=== PATIENT | female | born 1955 | race African-American/Black ===

== ENCOUNTER 2016-07-20 18:50 | Observation (INO) | payer OTHER ==
[2016-07-20 18:56] VITALS: BMI 33.7
[2016-07-20] MEDS ORDERED: ALBUTEROL SO4 2.5/IPRATROPIUM 0.5 INH SOL 3 ML VIAL.NEB. NEB ONE (19:10)
[2016-07-20] MEDS ORDERED: ASPIRIN 81 MG CHEWABLE TABLETS PO ONE (19:12)
[2016-07-20] MEDS ORDERED: methylPREDNISolone NA SUCC 125 MG/2 ML VIAL IVPB ONE (19:13)
[2016-07-20] MEDS ORDERED: SODIUM CHLORIDE 500 ML IV STA (19:13)
--- NOTE | 2016-07-20 19:14 | PDOC ---
History of Present Illness - General Chief Complaint: Chest Pain Stated Complaint: SOB/CHEST TIGHGTNESS Time Seen by Provider: 07/20/16 18:58 History Source: Patient Exam Limitations: No Limitations - History of Present Illness Initial Comments: 07/20/16 19:28 60yo Female patient w/ PmHx: HTN, HLD, DM, GERD, Gastritis, presents to ED c/o chest pains which began prior to her arrival. Patient states symptoms began this evening when she was attempting to throw out her garage, she believe she came into contact with something she is allergic to. Patient began itching, coughing and took Benadryl x 2. After taking Benadryl, patient reports Chest Pains began. Associated Trouble breathing. Patient denies any other complaints at this time. PCP- Dr. Kang. Presenting Symptoms: Chest Pain, Short of Breath Timing/Duration: reports: constant Severity/Quality: reports: moderate Location: reports: central Chest Pain Radiation: reports: no radiation Activities at Onset: reports: no specific activity Prior Chest Pain/Cardiac Workup: reports: No prior chest pain, No prior cardiac workup, Non-cardiac Modifying Factors: worse with: antacids, breathing, coughing, defecating, eating , exercise, lying down, morphine, movement, nitroglycerin, oxygen, palpation, rest, other Nitro Today/Relief: Yes: no nitro taken today Aspirin Received prior to arrival (Core Measure): Yes: 81 mg x 4, provided by ED ASA Contraindications (Core Measure): No: Allergy, Other, Active Blding w/i 24 hrs., Plavix, Receiving Warfarin Beta Bharat given by EMS (Core Measure): No Beta Bharat taken at Home (Core Measure): No Past History - Travel Traveled outside of the country in the last 30 days: No Close contact w/someone who was outside of country & ill: No - Past Medical History Allergies/Adverse Reactions: Allergies Allergy/AdvReac Type Severity Reaction Status Date / Time Pork/Porcine Containing Allergy Intermediate Rash Verified 07/20/16 18:56 Products No Known Drug Allergies Allergy Verified 07/20/16 18:56 banana Allergy Intermediate Difficulty Uncoded 07/20/16 18:56 Breathing cherries Allergy Intermediate Rash Uncoded 07/20/16 18:56 nuts Allergy Intermediate Rash Uncoded 07/20/16 18:56 peas Allergy Intermediate Rash Uncoded 07/20/16 18:56 shellfish Allergy Intermediate Difficulty Uncoded 07/20/16 18:56 Breathing Home Medications: Ambulatory Orders Metformin HCl [Glucophage -] 500 mg PO HS 08/10/13 Amlodipine Besylate/Benazepril [Lotrel 5-20 mg Capsule] 1 each PO HS 08/19/13 Atorvastatin Ca [Lipitor] 20 mg PO HS 02/10/14 Ibuprofen 800 mg PO TID PRN 11/15/15 Anemia: Yes (CHRONIC) Asthma: No Cancer: No Cardiac Disorders: No CVA: No COPD: No CHF: No Dementia: No Diabetes: Yes (DX 2005-TYPE 2) GI Disorders: Yes (REFLUX) Disorders: No HTN: Yes (DX 2005) Hypercholesterolemia: Yes (DX 2005) Liver Disease: No Suicide Attempt (Hx): No Seizures: No Thyroid Disease: No - Surgical History Abdominal Surgery: No Appendectomy: No Cardiac Surgery: No Cholecystectomy: No Lung Surgery: No Neurologic Surgery: No Orthopedic Surgery: Yes (LEFT KNEE ARTHROSCOPY,RIGHT SHOULDER SURGERY) - Psycho/Social/Smoking Cessation Hx Anxiety: No Suicidal Ideation: No Smoking History: Never smoked Have you smoked in the past 12 months: No Hx Alcohol Use: No Drug/Substance Use Hx: No Substance Use Type: None Hx Substance Use Treatment: No Cardiac Specific PMH - Complaint Specific PMHX Abdominal Aortic Aneurysm: No Angina: No Cardiac Arrhythmia: No Cardiac Stent: No GERD: No Myocardial Infarction: No Pacemaker: No Pulmonary Embolus: No Valvular Heart Disease: No Peripheral Vascular Disease: No Review of Systems - Review of Systems Able to Perform ROS?: Yes Is the patient limited Romansh proficient: No Constitutional: No: Chills, Fever Respiratory: Yes: Cough, Shortness of Breath. No: Stridor, Wheezing, Hemoptysis Cardiac (ROS): Yes: Chest Pain, Chest Tightness. No: Edema, Irregular Heart Rate, Lightheadedness, Palpitations, Syncope ABD/GI: No: Constipated, Diarrhea, Nausea, Poor Appetite, Poor Fluid Intake, Vomiting Integumentary: Yes: Sweating. No: Rash Neurological: No: Headache, Seizure, Dizziness All Other Systems: Reviewed and Negative *Physical Exam - Vital Signs Last Vital Signs Temp Pulse Resp BP Pulse Ox 98.6 F 99 H 22 152/95 98 07/20/16 23:30 07/20/16 23:30 07/20/16 23:30 07/20/16 23:30 07/20/16 23:30 - Physical Exam General Appearance: Yes: Nourished, Appropriately Dressed, Apparent Distress, Moderate Distress. No: Mild Distress, Severe Distress HEENT: positive: EOMI, LUIZA, Normal ENT Inspection, Normal Voice, Symmetrical, TMs Normal, Pharynx Normal. negative: Pharyngeal Erythema, Nasal Congestion, Rhinorrhea, Sinus Tenderness, TM Bulging, TM Dull, TM Erythema, Excessive drooling Neck: positive: Trachea midline, Supple. negative: Stridor, Lymphadenopathy (R) , Lymphadenopathy (L) Respiratory/Chest: positive: Lungs Clear, Labored Respiration, Decreased Breath Sounds. negative: Chest Tender, Normal Breath Sounds, Respiratory Distress, Accessory Muscle Use, Crackles, Stridor, Wheezing Cardiovascular: positive: Regular Rhythm, Regular Rate Gastrointestinal/Abdominal: positive: Normal Bowel Sounds, Soft, Distended. negative: Guarding, Rebound, Tenderness Musculoskeletal: positive: Normal Inspection. negative: CVA Tenderness Extremity: positive: Normal Capillary Refill, Normal Inspection, Normal Range of Motion. negative: Pedal Edema, Swelling, Calf Tenderness Integumentary: positive: Normal Color, Dry, Warm, Moist. negative: Hives, Rash , Swelling, Bruising Neurologic: positive: director treasurer II-XII NML intact, Fully Oriented, Alert, Normal Mood/ Affect, Normal Response, Motor Strength 5/5 ED Treatment Course - LABORATORY CBC & Chemistry Diagram: 07/20/16 19:20 07/20/16 21:24 - ADDITIONAL ORDERS Additional order review: Laboratory Results 07/20/16 07/20/16 07/20/16 21:24 21:24 19:20 INR D-Dimer Sodium 139 Cancelled Potassium 4.0 Cancelled Chloride 104 Cancelled Carbon Dioxide 27 Cancelled Anion Gap 8 Cancelled BUN 16 D Cancelled Creatinine 0.8 D Cancelled Creat Clearance w eGFR > 60 Cancelled Random Glucose 178 H D Cancelled Calcium 8.8 Cancelled Total Bilirubin 0.4 D Cancelled AST 25 D Cancelled ALT 34 D Cancelled Alkaline Phosphatase 97 Cancelled Creatine Kinase 377 H Cancelled CK-MB (CK-2) 5.926 H Troponin I < 0.02 Cancelled B-Natriuretic Peptide 32.34 Cancelled Total Protein 7.4 Cancelled Albumin 4.1 Cancelled TSH 1.02 Cancelled Urine Color Straw Urine Appearance Slcloudy Urine pH 7.0 Ur Specific [place] 1.015 Urine Protein Negative Urine Glucose (UA) Negative Urine Ketones Negative Urine Blood Negative Urine Nitrite Negative Urine Bilirubin Negative Urine Urobilinogen Negative Ur Leukocyte Esterase Negative 07/20/16 19:20 INR 1.00 D-Dimer 242 H Sodium Potassium Chloride Carbon Dioxide Anion Gap BUN Creatinine Creat Clearance w eGFR Random Glucose Calcium Total Bilirubin AST ALT Alkaline Phosphatase Creatine Kinase CK-MB (CK-2) Troponin I B-Natriuretic Peptide Total Protein Albumin TSH Urine Color Urine Appearance Urine pH Ur Specific [place] Urine Protein Urine Glucose (UA) Urine Ketones Urine Blood Urine Nitrite Urine Bilirubin Urine Urobilinogen Ur Leukocyte Esterase 07/20/16 19:20 RBC 4.64 MCV 77.0 L MCHC 32.5 RDW 16.3 H MPV 9.9 Neutrophils % 35.6 L D Lymphocytes % 53.6 H D Monocytes % 5.4 Eosinophils % 4.9 H D Basophils % 0.5 - RADIOLOGY Radiology Studies Ordered: Category Date Time Status CHEST CTA [CT] Stat CT Scan 07/21/16 00:09 Taken CHEST PA & LAT [RAD] Stat Radiology 07/20/16 19:10 Completed - Medications Given in the ED: ED Medications Discontinued Medications Generic Name Dose Route Start Last Admin Trade Name Hilda PRN Reason Stop Dose Admin Albuterol/Ipratropium 1 amp 07/20/16 19:15 07/20/16 19:34 Duoneb - NEB 07/20/16 20:01 1 amp Q15M SILVANA Administration Aspirin 324 mg 07/20/16 19:12 07/20/16 19:39 Asa - PO 07/20/16 19:13 324 mg ONCE ONE Administration Sodium Chloride 500 mls @ 500 mls/hr 07/20/16 19:13 07/20/16 21:16 Normal Saline - IV 07/20/16 20:12 500 mls/hr ASDIR STA Administration Methylprednisolone Sodium Succinate 125 mg 07/20/16 19:13 07/20/16 19:34 Solu-Medrol - IVPB 07/20/16 19:14 125 mg ONCE ONE Administration Morphine Sulfate 2 mg 07/20/16 23:34 07/20/16 23:35 Morphine Injection - IVPUSH 07/20/16 23:35 2 mg ONCE ONE Administration *DC/Admit/Observation/Transfer Diagnosis at time of Disposition: Sensation of chest tightness - Discharge Dispostion Condition at time of disposition: Stable Admit: Yes
[2016-07-20] MEDS: ALBUTEROL SO4 2.5/IPRATROPIUM 0.5 INH SOL 3 ML VIAL.NEB. NEB SCH ×2 (19:17→19:34)
[2016-07-20] MEDS ORDERED: methylPREDNISolone NA SUCC 125 MG/2 ML VIAL ONE (19:18)
[2016-07-20] MEDS ORDERED: ASPIRIN 325 MG TABLET ONE (19:36)
[2016-07-20 19:55] LABS: BASOPHIL 0.5 % (0-2.0); EOSINOPHIL 4.9 % (0-4.5); MCHC 32.5 g/dl (32.0-36.0); MEAN PLT VOLUME 9.9 fl (7.5-11.1); NEUTROPHILS 35.6 % (42.8-82.8); PLATELET COUNT 165 K/MM3 (134-434); RDW 16.3 % (11.6-15.6); WHITE BLOOD COUNT 5.7 K/mm3 (4.0-10.0)
[2016-07-20 21:34] LABS: URINE APPEARANCE SLCLOUDY; URINE BILIRUBIN NEGATIVE (NEGATIVE); URINE BLOOD NEGATIVE (NEGATIVE); URINE COLOR STRAW; URINE GLUCOSE (UA) NEGATIVE (NEGATIVE); URINE KETONE NEGATIVE (NEGATIVE); URINE LEUK ESTERASE NEGATIVE (NEGATIVE); URINE NITRITE NEGATIVE (NEGATIVE); URINE PROTEIN NEGATIVE (NEGATIVE); URINE UROBILINOGEN NEGATIVE E.U./dl (0.2-1.0)
[2016-07-20 21:55] LABS: PLATELET ESTIMATE ADEQUATE (NORMAL)
[2016-07-20 22:54] LABS: ALBUMIN 4.1 g/dl (3.4-5.0); ANION GAP 8 (8-16); CALCIUM 8.8 mg/dL (8.5-10.1); CO2 27 mmol/L (21-32); COCKROFT - GAULT 125.6895; CREATININE 0.8 mg/dL (0.55-1.02); GLUCOSE,RANDOM 178 mg/dL (74-106); SGOT/AST 25 U/L (15-37); SGPT/ALT 34 U/L (12-78)
[2016-07-20 23:05] LABS: ALK PHOS 97 U/L (45-117); BILIRUBIN,TOTAL 0.4 mg/dL (0.2-1.0); THYROID STIMULATING HORMONE 1.02 uIU/ml (0.358-3.74); TOT PROT 7.4 g/dl (6.4-8.2); TROPONIN I < 0.02 ng/ml (0.00-0.05)
[2016-07-20] MEDS ORDERED: morphine CARPU-JECT 2 MG/1 ML DISP.SYRIN IVPUSH ONE (23:34)
[2016-07-20] MEDS ORDERED: morphine CARPU-JECT 2 MG/1 ML DISP.SYRIN ONE (23:37)
--- NOTE | 2016-07-21 09:56 | EKG ---
Test Reason : Blood Pressure : / mmHG Vent. Rate : 093 BPM Atrial Rate : 093 BPM P-R Int : 148 ms QRS Dur : 074 ms QT Int : 362 ms P-R-T Axes : 043 -16 -05 degrees QTc Int : 450 ms POOR DATA QUALITY, INTERPRETATION MAY BE ADVERSELY AFFECTED NORMAL SINUS RHYTHM MODERATE VOLTAGE CRITERIA FOR LVH, MAY BE NORMAL VARIANT WHEN COMPARED WITH ECG OF 10-FEB-2014 16:30, T WAVE INVERSION NOW EVIDENT IN INFERIOR LEADS Confirmed by JANET CUELLAR MD ([id number]) on 07/21/2016 9:55:47 AM Referred By: Confirmed By:JANET UCELLAR MD
[2016-07-21 10:11] LABS: TROPONIN I < 0.02 ng/ml (0.00-0.05)
--- NOTE | 2016-07-21 11:01 | HP ---
Admitting History and Physical - Primary Care Physician PCP: Lamar Kang - Admission Chief Complaint: CP History Source: Medical Record - Past Medical History Cardiovascular: Yes: HTN, Hyperlipdemia Endocrine: Yes: Diabetes Mellitus - Smoking History Smoking history: Never smoked Have you smoked in the past 12 months: No - Alcohol/Substance Use Hx Alcohol Use: No Home Medications - Allergies Allergies/Adverse Reactions: Allergies Allergy/AdvReac Type Severity Reaction Status Date / Time Pork/Porcine Containing Allergy Intermediate Rash Verified 07/20/16 18:56 Products No Known Drug Allergies Allergy Verified 07/20/16 18:56 banana Allergy Intermediate Difficulty Uncoded 07/20/16 18:56 Breathing cherries Allergy Intermediate Rash Uncoded 07/20/16 18:56 nuts Allergy Intermediate Rash Uncoded 07/20/16 18:56 peas Allergy Intermediate Rash Uncoded 07/20/16 18:56 shellfish Allergy Intermediate Difficulty Uncoded 07/20/16 18:56 Breathing - Home Medications Home Medications: Ambulatory Orders Metformin HCl [Glucophage -] 500 mg PO HS 08/10/13 Amlodipine Besylate/Benazepril [Lotrel 5-20 mg Capsule] 1 each PO HS 08/19/13 Atorvastatin Ca [Lipitor] 20 mg PO HS 02/10/14 Ibuprofen 800 mg PO TID PRN 11/15/15 Review of Systems - Review of Systems Constitutional: denies: Chills, Fever Neck: reports: No Symptoms Cardiovascular: reports: Chest Pain Respiratory: denies: SOB Gastrointestinal: denies: Abdominal Pain Physical Examination Vital Signs: Vital Signs Temperature 99 F 07/21/16 10:14 Pulse Rate 81 07/21/16 10:14 Respiratory Rate 18 07/21/16 10:14 Blood Pressure 143/70 07/21/16 10:14 O2 Sat by Pulse Oximetry (%) 95 07/21/16 10:14 Constitutional: Yes: Calm Neck: Yes: WNL Cardiovascular: Yes: WNL Respiratory: Yes: WNL Gastrointestinal: Yes: WNL Problem List - Problems (1) Chest tightness or pressure Code(s): R07.89 - OTHER CHEST PAIN (2) HTN (hypertension) Code(s): I10 - ESSENTIAL (PRIMARY) HYPERTENSION Assessment/Plan 60yo Female patient w/ PmHx: HTN, HLD, DM, GERD, Gastritis, presents to ED c/o chest pains which began prior to her arrival. Patient states symptoms began this evening when she was attempting to throw out her garage, she believe she came into contact with something she is allergic to. Patient began itching, coughing and took Benadryl x 2. After taking Benadryl, patient reports Chest Pains began. Associated Trouble breathing. Patient denies any other complaints at this time. PCP- Dr. Kang. 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
[2016-07-21 13:34] LABS: TROPONIN I < 0.02 ng/ml (0.00-0.05)
--- NOTE | 2016-07-21 16:13 | CON.CARD ---
Consult Consult Specialty:: Cardiology Referred by:: Jorge Luis Reason for Consultation:: Chest pain - History of Present Illness History of Present Illness: This is a 60 year old with a PMH of HTN, HLD, DM2, GERD, and Gastritis. She states that she was well until she inhale something she may have been allergic to while throwing out the garbage. She began she felt short of breath and began coughing which led to chest discomfort and she went to the ER. She took took Benadryl x 2 with minimal relieve. Presently she is chest pain free and comfortable. - History Source History Provided By: Patient - Past Medical History Cardio/Vascular: Yes: HTN, Hyperlipdemia Endocrine: Yes: Diabetes Mellitus - Alcohol/Substance Use Hx Alcohol Use: No - Smoking History Smoking history: Never smoked Have you smoked in the past 12 months: No Home Medications - Allergies Allergies/Adverse Reactions: Allergies Allergy/AdvReac Type Severity Reaction Status Date / Time Pork/Porcine Containing Allergy Intermediate Rash Verified 07/20/16 18:56 Products No Known Drug Allergies Allergy Verified 07/20/16 18:56 banana Allergy Intermediate Difficulty Uncoded 07/20/16 18:56 Breathing cherries Allergy Intermediate Rash Uncoded 07/20/16 18:56 nuts Allergy Intermediate Rash Uncoded 07/20/16 18:56 peas Allergy Intermediate Rash Uncoded 07/20/16 18:56 shellfish Allergy Intermediate Difficulty Uncoded 07/20/16 18:56 Breathing - Home Medications Home Medications: Ambulatory Orders Metformin HCl [Glucophage -] 500 mg PO HS 08/10/13 Amlodipine Besylate/Benazepril [Lotrel 5-20 mg Capsule] 1 each PO HS 08/19/13 Atorvastatin Ca [Lipitor] 20 mg PO HS 02/10/14 Ibuprofen 800 mg PO TID PRN 11/15/15 Review of Systems Findings/Remarks: As per HPI Vital Signs: Vital Signs Temperature 98 F 07/21/16 13:23 Pulse Rate 90 07/21/16 13:23 Respiratory Rate 18 07/21/16 13:23 Blood Pressure 138/70 07/21/16 13:23 O2 Sat by Pulse Oximetry (%) 96 07/21/16 11:59 Respiratory: Yes: CTA Bilaterally Gastrointestinal: Yes: Normal Bowel Sounds, Soft Cardiovascular: Yes: Regular Rate and Rhythm (No murmurs) JVD: No Carotid Bruit: No PMI: Non-Displaced Heart Sounds: Yes: S1, S2 Edema: No (Lower extremity edema) - Other Data Labs, Other Data: INR, PTT INR 1.00 (0.82-1.09) 07/20/16 19:20 Troponin, BNP 07/21/16 07/21/16 09:20 12:45 Troponin I < 0.02 < 0.02 Troponin, BNP 07/21/16 07/21/16 09:20 12:45 Troponin I < 0.02 < 0.02 Imaging - Results Chest X-ray: Pending, Report Reviewed (CALEB) Assessment/Plan Chest pain, SOB, coughing after inhaling a potential allergen: No ongoing chest pain Troponin Levels are negative CPK is slightly increased but non cardiac as troponin levels are much more sensitive EKG review, NSR without acute changes No further inpatient work up required Out patient stress testing may be beneficial Call prn
[2016-07-21] MEDS ORDERED: PATIENT'S OWN MEDICATION (NON-FORMULARY) (Amlodipine Besylate/Benazepril [Lotrel 5-20 Mg C PO SCH (22:00)
[2016-07-21] MEDS ORDERED: metFORMIN HCL 500 MG TABLET (FP) PO SCH (22:00)
[2016-07-21] MEDS ORDERED: ATORVASTATIN CA 20 MG TABLET (FP) PO SCH (22:00)
[2016-07-21] MEDS ORDERED: amLODIPine BESYLATE 5 MG TABLET (FP) PO SCH (22:00)
[2016-07-21] MEDS ORDERED: LISINOPRIL 20 MG TABLET (FP) PO SCH (22:00)
[2016-07-22 08:10] LABS: BASOPHIL 0.6 % (0-2.0); EOSINOPHIL 2.7 % (0-4.5); MCH 25.3 pg (25.7-33.7); MCHC 32.6 g/dl (32.0-36.0); MEAN CELL VOLUME 77.6 fl (80-96); MEAN PLT VOLUME 9.7 fl (7.5-11.1); NEUTROPHILS 49.4 % (42.8-82.8); PLATELET COUNT 162 K/MM3 (134-434); RDW 16.4 % (11.6-15.6); WHITE BLOOD COUNT 5.6 K/mm3 (4.0-10.0)
[2016-07-22 08:33] LABS: ANION GAP 7 (8-16); CALCIUM 8.8 mg/dL (8.5-10.1); CO2 29 mmol/L (21-32); CREATININE 0.6 mg/dL (0.55-1.02); GLUCOSE,RANDOM 107 mg/dL (74-106); SGOT/AST 18 U/L (15-37); SGPT/ALT 33 U/L (12-78)
[2016-07-22 08:36] LABS: ALK PHOS 87 U/L (45-117); BILIRUBIN,TOTAL 0.5 mg/dL (0.2-1.0); TOT PROT 7.4 g/dl (6.4-8.2)
[2016-07-22 10:29] VITALS: TEMP 98
--- NOTE | 2016-07-22 14:27 | DS ---
Physical Examination Vital Signs: Vital Signs Temperature 98 F 07/22/16 10:00 Pulse Rate 78 07/22/16 10:00 Respiratory Rate 18 07/22/16 10:00 Blood Pressure 130/65 07/22/16 10:00 O2 Sat by Pulse Oximetry (%) 100 07/22/16 09:00 Constitutional: Yes: Calm Neck: Yes: WNL Cardiovascular: Yes: WNL Respiratory: Yes: WNL Gastrointestinal: Yes: WNL Edema: No Labs: CBC, BMP 07/22/16 06:00 07/22/16 06:00 Discharge Summary Reason For Visit: CHEST TIGHTNESS, PRESSURE Current Active Problems Chest tightness or pressure (Acute) Hospital Course: 60yo Female patient w/ PmHx: HTN, HLD, DM, GERD, Gastritis, presents to ED c/o chest pains which began prior to her arrival. Patient states symptoms began this evening when she was attempting to throw out her garage, she believe she came into contact with something she is allergic to. Patient began itching, coughing and took Benadryl x 2. After taking Benadryl, patient reports Chest Pains began. Associated Trouble breathing. Patient denies any other complaints at this time. PCP- Dr. Kang. (1) Chest tightness or pressure Code(s): R07.89 - OTHER CHEST PAIN TELE CARDIO CONSULT APPRECIATED NO ACS WILL NEED OUTPT STRESS TEST (2) HTN (hypertension) Code(s): I10 - ESSENTIAL (PRIMARY) HYPERTENSION ACCEPTABLE DISCHARGE NEEDS TO F/U WITH PCP IN 1 WEEK [employer]OTHER[employer] FM Condition: Stable - Instructions Referrals: Lamar Kang MD [Primary Care Provider] - Disposition: HOME - Home Medications Comprehensive Discharge Medication List: Ambulatory Orders Metformin HCl [Glucophage -] 500 mg PO HS 08/10/13 Amlodipine Besylate/Benazepril [Lotrel 5-20 mg Capsule] 1 each PO HS 08/19/13 Atorvastatin Ca [Lipitor] 20 mg PO HS 02/10/14 Ibuprofen 800 mg PO TID PRN 11/15/15
[2016-07-22 15:19] VITALS: BP 128/78; PULSE 73
--- NOTE | 2016-07-23 12:17 | EKG ---
Test Reason : Blood Pressure : / mmHG Vent. Rate : 094 BPM Atrial Rate : 094 BPM P-R Int : 146 ms QRS Dur : 072 ms QT Int : 356 ms P-R-T Axes : 064 -01 027 degrees QTc Int : 445 ms NORMAL SINUS RHYTHM NORMAL ECG WHEN COMPARED WITH ECG OF 10-FEB-2014 16:30, NO SIGNIFICANT CHANGE WAS FOUND Confirmed by ABENA YU MD ([id number]) on 07/23/2016 12:16:55 PM Referred By: Confirmed By:ABENA YU MD
== END 2016-07-22 15:36 | disposition home or self-care (01) ==
LOC: JER 18:50 → JERBED 07-21 06:21 → UNDOADMOB 07-21 06:36 → J4W 07-21 12:11
PROVIDERS: ADMIT Family Medicine; ATTEND Family Medicine
PROC: 3E0333Z Introduction of Anti-inflammatory into Peripheral Vein, Percutaneous Approach (ICD-10-PCS; principal; 2016-07-21)
PROC: 3E033NZ Introduction of Analgesics, Hypnotics, Sedatives into Peripheral Vein, Percutaneous Approach (ICD-10-PCS; 2016-07-21)
PROC: 3E0337Z Introduction of Electrolytic and Water Balance Substance into Peripheral Vein, Percutaneous Approach (ICD-10-PCS; 2016-07-21)
PROC: 3E0F7GC Introduction of Other Therapeutic Substance into Respiratory Tract, Via Natural or Artificial Opening (ICD-10-PCS; 2016-07-21)
DX: R07.89 Other chest pain (principal); I10 Essential (primary) hypertension; E78.5 Hyperlipidemia, unspecified; E11.9 Type 2 diabetes mellitus without complications; K21.9 Gastro-esophageal reflux disease without esophagitis; D64.9 Anemia, unspecified; Z91.010 Allergy to peanuts; Z91.013 Allergy to seafood; Z91.018 Allergy to other foods
CPT/HCPCS: 36415; 71020-TC; 71275-TC; 80053; 81003; 82550; 82553; 83880; 84443; 84484; 85025; 85379; 85610; 93005; 93010; 99285-25; G0378

== ENCOUNTER 2018-01-05 07:00 | Emergency (ER) | payer OTHER ==
[2018-01-05 07:15] VITALS: BMI 33.7
[2018-01-05] MEDS ORDERED: traMADol HCL 50 MG TABLET PO ONE (08:13)
[2018-01-05] MEDS ORDERED: KETOROLAC TROMETHAMINE 30 MG/1 ML VIAL IM ONE (08:13)
--- NOTE | 2018-01-05 08:28 | PDOC ---
History of Present Illness - General Chief Complaint: Back Pain Stated Complaint: RIGHT SIDE SHOULDER/NECK PAIN Time Seen by Provider: 01/05/18 07:54 History Source: Patient - History of Present Illness Timing/Duration: other Severity: severe Past History - Past Medical History Allergies/Adverse Reactions: Allergies Allergy/AdvReac Type Severity Reaction Status Date / Time Pork/Porcine Containing Allergy Intermediate Rash Verified 01/05/18 07:13 Products No Known Drug Allergies Allergy Verified 01/05/18 07:13 banana Allergy Intermediate Difficulty Uncoded 01/05/18 07:13 Breathing cherries Allergy Intermediate Rash Uncoded 01/05/18 07:13 nuts Allergy Intermediate Rash Uncoded 01/05/18 07:13 peas Allergy Intermediate Rash Uncoded 01/05/18 07:13 shellfish Allergy Intermediate Difficulty Uncoded 01/05/18 07:13 Breathing Home Medications: Ambulatory Orders metFORMIN HCL [Glucophage -] 500 mg PO HS 08/10/13 Amlodipine Besylate/Benazepril [Lotrel 5-20 mg Capsule] 1 each PO HS 08/19/13 Atorvastatin Ca [Lipitor] 20 mg PO HS 02/10/14 Diphenhydramine HCl [Benadryl -] 25 mg PO Q8H PRN #21 capsule 11/11/17 Ranitidine [Zantac -] 150 mg PO BID #10 tablet 11/11/17 predniSONE [Deltasone -] 20 mg PO BID #8 tablet 11/11/17 Tramadol HCl 50 mg PO Q6H #30 tablet MDD 200 mg 01/05/18 Anemia: Yes (CHRONIC) Asthma: No Cancer: No Cardiac Disorders: No CVA: No COPD: No CHF: No Dementia: No Diabetes: Yes (DX 2005-TYPE 2) GI Disorders: Yes (REFLUX) Disorders: No HTN: Yes (DX 2005) Hypercholesterolemia: Yes (2005) Liver Disease: No Seizures: No Thyroid Disease: No - Surgical History Abdominal Surgery: No Appendectomy: No Cardiac Surgery: No Cholecystectomy: No Lung Surgery: No Neurologic Surgery: No Orthopedic Surgery: Yes (LEFT KNEE ARTHROSCOPY,RIGHT SHOULDER SURGERY) - Immunization History Immunization Up to Date: Yes - Suicide/Smoking/Psychosocial Hx Smoking History: Never smoked Have you smoked in the past 12 months: No Hx Alcohol Use: No Drug/Substance Use Hx: No Substance Use Type: None Hx Substance Use Treatment: No Review of Systems - Review of Systems Musculoskeletal: Yes: Back Pain, Neck Pain Neurological: Yes: Tingling, Weakness. No: Numbness *Physical Exam - Vital Signs Last Vital Signs Temp Pulse Resp BP Pulse Ox 98.0 F 72 18 136/73 100 01/05/18 07:13 01/05/18 07:13 01/05/18 07:13 01/05/18 07:13 01/05/18 07:13 - Physical Exam Comments: 01/05/18 08:29 Pt crying in ED, holding RUE to her side 01/05/18 08:32 General Appearance: Yes: Appropriately Dressed, Moderate Distress HEENT: positive: Normal Voice Neck: positive: Tender (to R lower neck, no midline ttp, FROMI), Supple Respiratory/Chest: negative: Respiratory Distress Extremity: positive: Other (diffuse ttp to RUE w/ 3/5 strength to RUE vs 5/5 LUE , unable to abduct RUE, sensation intact to RUE) Integumentary: positive: Dry, Warm Neurologic: positive: Fully Oriented, Alert, Normal Mood/Affect Medical Decision Making - Medical Decision Making 01/05/18 08:16 62-year-old female, history of HTN, HLD, DM, s/p R rotator cuff surgery 4 years ago at [facility], cervical stenosis, s/p anterior cervical discectomy and fusion of C4-C6 in 2016 at [facility], with chronic right neck pain radiating to right arm and right lower back w/ tingling and weakness of RUE despite surgery per pt, here w/ her usual RUE pain. Pt recently switched from Motrin to Celebrex, but states Celebrex not relieving her pain. S/p physical therapy in the past but not currently. Denies any new symptoms at this time. States she has not been able to work for the past 4 years See exam Cervical radiculopathy Chronic S/p cervical and R rotator cuff surgery On pain meds at home w/ no relief No new sxs Exam baseline for pt and is significant for diffuse ttp to RUE/back w/ 3/5 strength to RUE compared to LUE and inability to abduct RUE -pain control in ED and reassess -anticipate dc w/ ortho f/u 01/05/18 10:15 Pt reports feeling better with meds. Will dc with pain control. Patient has sling at home which she uses for comfort. Will give pain referral at this time and encourage patient to follow up with her orthopedics *DC/Admit/Observation/Transfer Diagnosis at time of Disposition: Chronic arm pain Qualifiers: Laterality: right Qualified Code(s): M79.601 - Pain in right arm - Discharge Dispostion Disposition: HOME Condition at time of disposition: Improved - Prescriptions Prescriptions: Tramadol HCl 50 mg PO Q6H #30 tablet MDD 200 mg - Referrals Referrals: Nelda Rodriguez MD [Primary Care Provider] - Andrew South MD [Staff Physician] - - Patient Instructions Additional Instructions: Take medication as prescribed and follow up with of pain management. Please call your orthopedic doctor this week to make an appointment - Post Discharge Activity
[2018-01-05] MEDS ORDERED: traMADol HCL 50 MG TABLET ONE (08:29)
[2018-01-05] MEDS ORDERED: KETOROLAC TROMETHAMINE 30 MG/1 ML VIAL ONE (08:29)
[2018-01-05 10:39] VITALS: BP 124/78; PULSE 68; TEMP 98.4
== END 2018-01-05 10:30 | disposition home or self-care (01) ==
LOC: JER 07:00
PROC: 3E0233Z Introduction of Anti-inflammatory into Muscle, Percutaneous Approach (ICD-10-PCS; principal; 2018-01-05)
DX: M79.601 Pain in right arm (principal); G89.29 Other chronic pain; I10 Essential (primary) hypertension; E78.00 Pure hypercholesterolemia, unspecified; E11.9 Type 2 diabetes mellitus without complications; Z79.84 Long term (current) use of oral hypoglycemic drugs; D64.9 Anemia, unspecified; K21.9 Gastro-esophageal reflux disease without esophagitis; M48.02 Spinal stenosis, cervical region; Z98.1 Arthrodesis status
CPT/HCPCS: 96372; 99282-25

== ENCOUNTER 2019-10-28 11:37 | Emergency (ER) | payer OTHER ==
[2019-10-28 12:13] VITALS: TEMP 98.1; BMI 28.3
[2019-10-28] MEDS ORDERED: ONDANSETRON *ODT* 4 MG TABLET SL ONE (12:31)
[2019-10-28] MEDS ORDERED: ONDANSETRON *ODT* 4 MG TABLET ONE (12:59)
[2019-10-28 13:51] LABS: BASO % 0.6 % (0-2.0); EOS % 1.8 % (0-4.5); HEMATOCRIT 35.5 % (32.4-45.2); HEMOGLOBIN 11.2 GM/dL (10.7-15.3); LYMPH % 37.2 % (8-40); MCH 24.9 pg (25.7-33.7); MCHC 31.5 g/dl (32.0-36.0); MEAN CELL VOLUME 78.9 fl (80-96); MEAN PLT VOLUME 9.2 fl (7.5-11.1); MONO % 8.4 % (3.8-10.2); PLATELET COUNT 154 K/MM3 (134-434); RBC 4.51 M/mm3 (3.60-5.2); RDW 16.3 % (11.6-15.6); WHITE BLOOD COUNT 3.3 K/mm3 (4.0-10.0)
[2019-10-28 14:27] LABS: ALBUMIN 3.6 g/dl (3.4-5.0); ALK PHOS 91 U/L (45-117); ANION GAP 4 MMOL/L (8-16); BILIRUBIN,TOTAL 0.3 mg/dL (0.2-1); BLOOD UREA NITROGEN 8.9 mg/dL (7-18); CALCIUM 9.1 mg/dL (8.5-10.1); CHLORIDE 110 mmol/L (98-107); CO2 27 mmol/L (21-32); CREATININE 0.6 mg/dL (0.55-1.3); GLUCOSE,RANDOM 122 mg/dL (74-106); LIPASE 127 U/L (73-393); POTASSIUM 4.1 mmol/L (3.5-5.1); SGOT/AST 19 U/L (15-37); SGPT/ALT 24 U/L (13-61); SODIUM 142 mmol/L (136-145); TOT PROT 7.5 g/dl (6.4-8.2)
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
[2019-10-28 17:47] VITALS: BP 147/78; PULSE 75
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
--- NOTE | 2019-10-29 11:29 | EKG ---
Test Reason : Blood Pressure : / mmHG Vent. Rate : 070 BPM Atrial Rate : 070 BPM P-R Int : 160 ms QRS Dur : 082 ms QT Int : 398 ms P-R-T Axes : 059 -11 003 degrees QTc Int : 429 ms NORMAL SINUS RHYTHM MINIMAL VOLTAGE CRITERIA FOR LVH, MAY BE NORMAL VARIANT BORDERLINE ECG WHEN COMPARED WITH ECG OF 21-JUL-2016 02:24, NO SIGNIFICANT CHANGE WAS FOUND Confirmed by ANNE-MARIE SINGH, JOB ([id number]) on 10/29/2019 11:29:35 AM Referred By: Confirmed By:JOB XIE MD
== END 2019-10-28 18:15 | disposition home or self-care (01) ==
LOC: JER 11:37
DX: R06.02 Shortness of breath (principal)
CPT/HCPCS: 36415; 71045-TC-FY; 80053; 82550; 82553; 83690; 84484; 85025; 93005; 93010; 99285-25; Q0162

== ENCOUNTER 2019-10-28 18:25 | Emergency (ER) | payer OTHER ==
--- NOTE | 2019-10-28 18:31 | PDOC ---
History of Present Illness - General History Source: Patient Exam Limitations: No Limitations - History of Present Illness Initial Comments: 10/28/19 18:28 63 year old female with a significant PMH of HTN, HLD and DM who is complaining shortness of breath since last night. Patient was seen in [facility] ER and evaluated and discharged today with a negative work-up. Patient was instructed to call the telehealth hotline to set up COVID testing since [facility] ER is only doing it for admitted patients at this time. Patient denies any new symptoms since discharge Past History - Medical History Allergies/Adverse Reactions: Allergies Allergy/AdvReac Type Severity Reaction Status Date / Time Pork/Porcine Containing Allergy Intermediate Rash Verified 01/05/18 07:13 Products No Known Drug Allergies Allergy Verified 01/05/18 07:13 banana Allergy Intermediate Difficulty Uncoded 01/05/18 07:13 Breathing cherries Allergy Intermediate Rash Uncoded 01/05/18 07:13 nuts Allergy Intermediate Rash Uncoded 01/05/18 07:13 peas Allergy Intermediate Rash Uncoded 01/05/18 07:13 shellfish Allergy Intermediate Difficulty Uncoded 01/05/18 07:13 Breathing Home Medications: Ambulatory Orders metFORMIN HCL [Glucophage -] 500 mg PO HS 08/10/13 Amlodipine Besylate/Benazepril [Lotrel 5-20 mg Capsule] 1 each PO HS 08/19/13 Atorvastatin Ca [Lipitor] 20 mg PO HS 02/10/14 Diphenhydramine HCl [Benadryl -] 25 mg PO Q8H PRN #21 capsule 11/11/17 Ranitidine [Zantac -] 150 mg PO BID #10 tablet 11/11/17 predniSONE [Deltasone -] 20 mg PO BID #8 tablet 11/11/17 Tramadol HCl 50 mg PO Q6H #20 tablet MDD 200mg 01/05/18 Tramadol HCl 50 mg PO Q6H #30 tablet MDD 200 mg 01/05/18 Anemia: Yes (CHRONIC) Asthma: No Cancer: No Cardiac Disorders: No CVA: No COPD: No CHF: No Dementia: No Diabetes: Yes (DX 2005-TYPE 2) GI Disorders: Yes (REFLUX) Disorders: No HTN: Yes (DX 2005) Hypercholesterolemia: Yes (2005) Liver Disease: No Seizures: No Thyroid Disease: No - Surgical History Abdominal Surgery: No Appendectomy: No Cardiac Surgery: No Cholecystectomy: No Lung Surgery: No Neurologic Surgery: No Orthopedic Surgery: Yes (LEFT KNEE ARTHROSCOPY,RIGHT SHOULDER SURGERY) - Immunization History Immunization Up to Date: Yes - Psycho-Social/Smoking History Smoking History: Never smoked Have you smoked in the past 12 months: No *Physical Exam - Physical Exam 10/28/19 18:30 Deferred secondary to video chat not working on back Medical Decision Making - Medical Decision Making 10/28/19 18:30 COVID testing sent to [facility] directions and instructions for patient to receive testing sent to be a backline patient given instructions as well as signs and symptoms to look out for to return to the emergency room for further assessment Patient to proceed to [facility] for COVID testing Discharge - Discharge Information Problems reviewed: Yes Clinical Impression/Diagnosis: Counseled about COVID-19 virus infection Condition: Stable Disposition: HOME - Follow up/Referral - Patient Discharge Instructions - Post Discharge Activity
== END 2019-10-28 18:49 | disposition home or self-care (01) ==
LOC: JVIRT 18:25
DX: Z11.59 Encounter for screening for other viral diseases (principal)
CPT/HCPCS: Q3014-GT; U0003

== ENCOUNTER 2023-02-20 07:30 | Day surgery (SDC) | payer OTHER ==
[2023-02-15 14:29] VITALS: BMI 32.6
[2023-02-20 10:20] VITALS: RESP 20; TEMP 98
[2023-02-20 10:26] VITALS: BP 108/65; PULSE 98
== END 2023-02-20 10:18 | disposition home or self-care (01) ==
LOC: FASU-ENDO 07:30
PROVIDERS: ATTEND Internal Medicine Gastroenterology
PROC: 0DJD8ZZ Inspection of Lower Intestinal Tract, Via Natural or Artificial Opening Endoscopic (ICD-10-PCS; principal; 2023-02-20 09:30)
DX: Z12.11 Encounter for screening for malignant neoplasm of colon (principal); K57.30 Diverticulosis of large intestine without perforation or abscess without bleeding